=== PATIENT | male | born 1960 | race Caucasian/White ===

== ENCOUNTER 2016-12-31 18:58 | Emergency (ER) | payer MEDICARE, OTHER ==
[~2016-12-31] VITALS: Ht 175.3 cm; Wt 86.4 kg
[~2016-12-31 18:58] MED LIST: ALPR2TAB PO
[2016-12-31 19:02] VITALS: Ht 175.3 cm; Wt 86.4 kg
--- NOTE | 2016-12-31 19:42 | ERD ---
ER Documentation Chief Complaint Date/Time DATE: 12/31/16 TIME: 19:41 Chief Complaint BIBA c/o left hip pain,bruising and bleeding forehead r/t fall,skin rash HPI 56-year-old male well known to this ED with a long history of alcohol abuse brought to the ED via rescue ambulance after a fall which he hit his head. Mild frontal headache. Denies loss of consciousness or neck pain. Mild left hip pain but ambulated without difficulty. Patient states just wants to go home. Admits to acute and chronic alcohol abuse. No chest pain or palpitations. No shortness of breath or cough. No depression or anxiety. Denies auditory or visual hallucinations. ROS All systems reviewed and are negative except as per history of present illness. Medications Home Meds Reported Medications Alprazolam* (Xanax*) 2 Mg Tablet, 2 MG PO TID, TAB 04/25/16 Allergies Allergies: Coded Allergies: sulfamethoxazole (Verified Allergy, Unknown, 07/18/16) trimethoprim (Verified Allergy, Unknown, 07/18/16) PMhx/Soc Reviewed in chart. As per HPI. Tetanus Vacc unknown. History of Surgery: Yes (skin CA removed, left leg repair with metal evelyn) Anesthesia Reaction: No Hx Neurological Disorder: No (pt denies seizures and stroke as previously noted ) Hx Respiratory Disorders: No Hx Cardiac Disorders: No Hx Psychiatric Problems: No (pt denies schizophrenia and anxiety, although previously noted) Hx Miscellaneous Medical Probl: Yes (skin CA,avascular necrosis (L) hip) Hx Alcohol Use: No Hx Substance Use: No Hx Tobacco Use: Yes (2 cig/ day) Smoking Status: Current every day smoker FmHx Not relevant to presenting complaint Physical Exam Vitals Vital Signs Date Time Temp Pulse Resp B/P Pulse Ox O2 Delivery O2 Flow Rate FiO2 12/31/16 21:25 98.0 98 18 165/94 100 Room Air 12/31/16 19:02 97.6 96 18 215/128 98 Physical Exam Const: Alert, no acute distress. AOB. Poor hygiene. Head: Frontal scalp abrasion. No active bleeding. No tenderness. Eyes: Normal Conjunctiva. No periorbital ecchymoses. EOMI. Pupils equal reactive to light. Horizontal nystagmus. No periorbital ecchymosis. ENT: Normal External Ears, Nose and Mouth. Negative matson sign. Neck: Full range of motion nontender. Resp: Clear to auscultation bilaterally. No rib tenderness or crepitus. Cardio: Regular rate and rhythm, no murmurs Abd: Soft, non tender, non distended. Normal bowel sounds Skin: No petechiae or rashes Back: No midline or flank tenderness Ext: No cyanosis, or edema Neur: Awake and alert. Ambulatory with a steady gait. No focal deficit observed.No tremors. Psych: Does not appear anxious or depressed. Denies visual or auditory hallucinations. Results 24 hrs Current Medications Medications (Trade) Dose Ordered Sig/Guzman Route PRN Reason Start Time Stop Time Status Last Admin Dose Admin Diphtheria/ Tetanus/Acell Pertussis (Adacel) 0.5 ml ONCE ONCE IM* 12/31/16 20:00 12/31/16 20:01 DC PROCEDURE: CT Brain without contrast. CLINICAL INDICATION: Trauma. Headache. TECHNIQUE: A CT of the brain without contrast was performed utilizing axial sections from the skull base through the vertex. The patient was scanned without intravenous contrast enhancement. Sagittal and coronal reformatted images were obtained using the data from the axial images. Total exam DLP is 720.23 mGy-cm. CTDIvol is 43.48 mGy. One or more of the following dose reduction techniques were used: Automated exposure control, adjustment of the mA and/or kV according to patient size, use of iterative reconstruction technique. COMPARISON: 06/22/2016. FINDINGS: There is normal hansen-white matter differentiation. There is enlargement of the ventricles and subarachnoid spaces consistent with atrophy, out of proportion for the patient's age. There is decreased attenuation of the periventricular white matter consistent with microangiopathic ischemic change. There is no intracranial hemorrhage or space-occupying lesion. There is no midline shift. There is no skull fracture or lytic lesion. IMPRESSION: 1. Atrophy, out of proportion for the patient's age. 2. Microangiopathic ischemic change. 3. No intracranial hemorrhage. 4. Otherwise unremarkable noncontrast CT scan of the brain. RPTAT: QQ .Chao Ochoa MD, MD Date Time Electronically viewed and signed by .Chao Ochoa MD, on 12/31/2016 20:58 .R/ PROCEDURE: CT Cervical Spine without contrast. CLINICAL INDICATION: Trauma. Neck pain. TECHNIQUE: Helical axial sections were obtained through the cervical spine without intravenous contrast enhancement. Sagittal and coronal reformatted images were accomplished using the data from the axial images. Total exam DLP is 527.31 mGy-cm. CTDIvol is 22.27 mGy. One or more of the following dose reduction techniques were used: Automated exposure control, adjustment of the mA and/or kV according to patient size, use of iterative reconstruction technique. COMPARISON: No prior studies are available for comparison. FINDINGS: There is normal stature and alignment of the vertebrae. There is no fracture. The disk height is normal. There is no lytic or blastic lesion. The paravertebral soft tissues are normal. IMPRESSION: 1. Unremarkable CT scan of the cervical spine. 2. No fracture. RPTAT: QQ .Chao Ochoa MD, MD Date Time Electronically viewed and signed by .Chao Ochoa MD, MD on 12/31/2016 21:01 .R/ Procedures/MDM DOCUMENTS REVIEWED: ED nurse, prior ED REEXAMINATION/REEVALUATION: Time:21:15. Doing well. Ambulatory with a steady gait and wants to be discharged home or he will sign out AMA MEDICAL DECISION MAKIN-year-old male well known to this ED with a long history of alcohol abuse brought to the ED via rescue ambulance after a fall and head injury. He sustained a closed head injury and scalp abrasion. No CT evidence of intracranial bleed or infarct. No cervical spine injury. Alcohol cessation counseling provided. Stable for discharge with precautionary instructions and outpatient follow-up is counseled. Counseled patient regarding diagnostic workup, diagnosis and need for followup. Understands to return to ED if symptoms recur, worsen or any other concerns. Departure Diagnosis: Primary Impression: Alcoholic intoxication Complication of substance-induced condition: with unspecified complication Qualified Code: F10.129 - Alcoholic intoxication, with unspecified complication Additional Impressions: Chronic alcohol abuse Closed head injury Encounter type: initial encounter Qualified Code: S09.90XA - Closed head injury, initial encounter Scalp abrasion Encounter type: initial encounter Qualified Code: S00.01XA - Scalp abrasion , initial encounter Condition: Stable LUIS RENEE MD Dec 31, 2016 19:41
[2016-12-31] MEDS ORDERED: DIPHTH/TET/ACEL PERTUSS (ADULT) 0.5 ML VIAL IM* ONE (20:00)
--- NOTE | 2016-12-31 20:58 | RADRPT ---
PROCEDURE: CT Brain without contrast. CLINICAL INDICATION: Trauma. Headache. TECHNIQUE: A CT of the brain without contrast was performed utilizing axial sections from the skul l base through the vertex. The patient was scanned without intravenous contrast enhancement. Sagitta l and coronal reformatted images were obtained using the data from the axial images. Total exam DLP is 720.23 mGy-cm. CTDIvol is 43.48 mGy. One or more of the following dose reduction techniques were used: Automated exposure control, adjustment of the mA and/or kV according to patient size, use of iterative reconstruction technique. COMPARISON: 06/22/2016. FINDINGS: There is normal hansen-white matter differentiation. There is enlargement of the ventricles and subarachnoid spaces consistent with atrophy, out of propo rtion for the patient's age. There is decreased attenuation of the periventricular white matter consistent with microangiopathic ischemic change. There is no intracranial hemorrhage or space-occupying lesion. There is no midline shift. There is no skull fracture or lytic lesion. IMPRESSION: 1. Atrophy, out of proportion for the patient's age. 2. Microangiopathic ischemic change. 3. No intracranial hemorrhage. 4. Otherwise unremarkable noncontrast CT scan of the brain. RPTAT: QQ .Chao Ochoa MD, MD Date Time Electronically viewed and signed by .Chao Ochoa MD, on 12/31/2016 20:58 .R/
--- NOTE | 2016-12-31 21:01 | RADRPT ---
PROCEDURE: CT Cervical Spine without contrast. CLINICAL INDICATION: Trauma. Neck pain. TECHNIQUE: Helical axial sections were obtained through the cervical spine without intravenous con trast enhancement. Sagittal and coronal reformatted images were accomplished using the data from th e axial images. Total exam DLP is 527.31 mGy-cm. CTDIvol is 22.27 mGy. One or more of the followi ng dose reduction techniques were used: Automated exposure control, adjustment of the mA and/or kV a ccording to patient size, use of iterative reconstruction technique. COMPARISON: No prior studies are available for comparison. FINDINGS: There is normal stature and alignment of the vertebrae. There is no fracture. The disk height is normal. There is no lytic or blastic lesion. The paravertebral soft tissues are normal. IMPRESSION: 1. Unremarkable CT scan of the cervical spine. 2. No fracture. RPTAT: QQ .Chao Ochoa MD, MD Date Time Electronically viewed and signed by .Chao Ochoa MD, on 12/31/2016 21:01 .R/
[2016-12-31 21:25] VITALS: BP 165/94; PULSE 98; RESP 18; TEMP 98
== END 2016-12-31 22:07 | disposition home or self-care (01) ==
LOC: E/R 18:58
DX: F10.129 Alcohol abuse with intoxication, unspecified (principal); S00.01XA Abrasion of scalp, initial encounter; F17.210 Nicotine dependence, cigarettes, uncomplicated; R40.2142 Coma scale, eyes open, spontaneous, at arrival to emergency department; R40.2242 Coma scale, best verbal response, confused conversation, at arrival to emergency department; R40.2362 Coma scale, best motor response, obeys commands, at arrival to emergency department; S09.90XA Unspecified injury of head, initial encounter; W01.10XA Fall on same level from slipping, tripping and stumbling with subsequent striking against unspecified object, initial encounter; Y92.9 Unspecified place or not applicable; Z85.828 Personal history of other malignant neoplasm of skin
CPT/HCPCS: 70450; 72125

== ENCOUNTER 2017-01-17 12:37 | Emergency (ER) | payer MEDICARE, OTHER ==
[~2017-01-17] VITALS: Ht 172.7 cm; Wt 80.0 kg
[2017-01-17 12:41] VITALS: Ht 172.7 cm; Wt 80.0 kg
[2017-01-17 13:05] VITALS: BP 110/61; PULSE 99; RESP 20; TEMP 97.8
--- NOTE | 2017-01-17 13:25 | RADRPT ---
PROCEDURE: CT brain without contrast CLINICAL INDICATION: Altered mental state TECHNIQUE: CT of the brain without contrast performed on a multidetector CT scanner, with multiplan ar reformats. One or more of the following dose reduction techniques were used: Automated exposure control, adjustment in mA and / or kV according to patient size, use of iterative reconstructive bobby hnique. CTDIvol = 45 mGy; DLP = 720 mGy-cm. COMPARISON: 12/31/2016 FINDINGS: No acute intracranial hemorrhage is identified. No extra-axial fluid collection is seen. There is no mass effect. No midline shift is identified. Ventricles and sulci are mildly enlarged compatible with generalized volume loss. There are mild areas of hypodensity in the periventricular - deep white matter which are nonspecific but suggestive of chronic small vessel ischemic changes. Wallace-white differentiation is preserved. Osseous structures are unremarkable. Mastoid air cells and imaged paranasal sinuses grossly clear. IMPRESSION: 1. No evidence of acute intracranial pathology. 2. Mild generalized volume loss, with mild chronic small vessel ischemic changes. RPTAT: VV .Aron Mccall MD, Date Time Electronically viewed and signed by .Aron Mccall MD, on 01/17/2017 13:25 .O/
--- NOTE | 2017-01-17 14:18 | ERD ---
ER Documentation Chief Complaint Date/Time DATE: 01/17/17 TIME: 14:16 Chief Complaint ETOH NO TRAUMA SPEAKING IN COMPLETE SENTENCES HPI Patient is a 56-year-old male with alcohol abuse who presents altered. Please note the history and physical exam is limited secondary to the patient's altered mental status. The patient was brought in by ambulance. He admits to drinking alcohol. He was found outside of a [employer] store and the shop owner [employer] company called 911. The patient has no complaints. The patient is well-known to our staff for similar visits. Upon review of old medical records she has multiple visits to the ER. Review of the emergency department information exchange shows visits to 4 separate emergency departments. ROS All systems reviewed and are negative except as per history of present illness. Medications Home Meds Reported Medications Alprazolam* (Xanax*) 2 Mg Tablet, 2 MG PO TID, TAB 04/25/16 Allergies Allergies: Coded Allergies: sulfamethoxazole (Verified Allergy, Unknown, 01/17/17) trimethoprim (Verified Allergy, Unknown, 01/17/17) PMhx/Soc History of Surgery: Yes (skin CA removed, left leg repair with metal evelyn) Anesthesia Reaction: No Hx Neurological Disorder: No (pt denies seizures and stroke as previously noted ) Hx Respiratory Disorders: No Hx Cardiac Disorders: No Hx Psychiatric Problems: No (pt denies schizophrenia and anxiety, although previously noted) Hx Miscellaneous Medical Probl: Yes (skin CA,avascular necrosis (L) hip) Hx Alcohol Use: Yes Hx Substance Use: No Hx Tobacco Use: Yes (2 cig/ day) Smoking Status: Current every day smoker FmHx Unable to obtain Physical Exam Vitals Vital Signs Date Time Temp Pulse Resp B/P Pulse Ox O2 Delivery O2 Flow Rate FiO2 01/17/17 13:05 97.8 99 20 110/61 95 01/17/17 12:41 97.8 99 20 110/61 95 Physical Exam Const: No acute distress Head: Atraumatic Eyes: Normal Conjunctiva ENT: Normal External Ears, Nose and Mouth. Neck: Full range of motion..~ No meningismus. Resp: Clear to auscultation bilaterally Cardio: Regular rate and rhythm, no murmurs Abd: Soft, non tender, non distended. Normal bowel sounds Skin: No petechiae or rashes Back: No midline or flank tenderness Ext: No cyanosis, or edema Neur: Awake but intoxicated Results 24 hrs Laboratory Tests Test 01/17/17 12:57 Bedside Glucose 149mg/dL Procedures/[facility] CT head is negative for cranial hemorrhage or skull fracture per radiology. Accu-Chek is normal. Patient is a 56-year-old male who presents altered. Accu-Chek was normal. CT scan of the brain shows no skull fracture or intra-cranial hemorrhage. The patient will be discharged home and can follow-up with a primary doctor at the local clinics within 24-48 hours. He was instructed not drink alcohol to excess. The patient will be discharged once clinically sober and able to ambulate on his own. Departure Diagnosis: Primary Impression: Alcoholic intoxication Complication of substance-induced condition: with delirium Qualified Code: F10.121 - Alcoholic intoxication, with delirium Condition: Fair Patient Instructions: Alcohol Intoxication Referrals: COUNT INCLUDES THE [facility] YOU HAVE RECEIVED A MEDICAL SCREENING EXAM AND THE RESULTS INDICATE THAT YOU DO NOT HAVE A CONDITION THAT REQUIRES URGENT TREATMENT IN THE EMERGENCY DEPARTMENT. FURTHER EVALUATION AND TREATMENT OF YOUR CONDITION CAN WAIT UNTIL YOU ARE SEEN IN YOUR DOCTORS OFFICE WITHIN THE NEXT 1-2 DAYS. IT IS YOUR RESPONSIBILITY TO MAKE AN APPOINTMENT FOR FOLOW-UP CARE. IF YOU HAVE A PRIMARY DOCTOR --you should call your primary doctor and schedule an appointment IF YOU DO NOT HAVE A PRIMARY DOCTOR YOU CAN CALL OUR PHYSICIAN REFERRAL HOTLINE AT IF YOU CAN NOT AFFORD TO SEE A PHYSICIAN YOU CAN CHOSE FROM THE FOLLOWING COUNT INCLUDES THE [facility] [address] [facility]. [facility] [address] [facility] [place] [address] [facility] [address] [facility]. [facility] [address] [facility]. [facility]. [address] Additional Instructions: Call your primary care doctor TOMORROW for an appointment during the next 1-2 days.See the doctor sooner or return here if your condition worsens before your appointment time. REYNA RENDON MD Jan 17, 2017 14:18
== END 2017-01-17 15:29 | disposition home or self-care (01) ==
LOC: E/R 12:37
DX: F10.121 Alcohol abuse with intoxication delirium (principal); F17.210 Nicotine dependence, cigarettes, uncomplicated; R40.2142 Coma scale, eyes open, spontaneous, at arrival to emergency department; R40.2242 Coma scale, best verbal response, confused conversation, at arrival to emergency department; R40.2362 Coma scale, best motor response, obeys commands, at arrival to emergency department; Z85.828 Personal history of other malignant neoplasm of skin
CPT/HCPCS: 70450; 82962

== ENCOUNTER 2017-02-20 22:58 | Emergency (ER) | payer MEDICARE, OTHER ==
[~2017-02-20] VITALS: Ht 175.3 cm; Wt 81.8 kg
[2017-02-20 23:00] VITALS: Ht 175.3 cm; Wt 81.8 kg
--- NOTE | 2017-02-20 23:17 | ERA ---
ER Documentation Chief Complaint Date/Time DATE: 02/20/17 TIME: 23:17 Chief Complaint head pain after fall,verbalized someone's out to get him HPI The patient is a 56-year-old male, presenting to the ER because of a head pain after he fell. He also stated that somebody is after him. He is obvious intoxicated at the history is well limited. He has presented to the ER previously for alcohol intoxication. Past medical history/past surgical history/social history/review of system: Unable to perform due to his condition ROS All systems reviewed and are negative except as per history of present illness. Medications Home Meds Discontinued Reported Medications Alprazolam* (Xanax*) 2 Mg Tablet, 2 MG PO TID, TAB 04/25/16 Allergies Allergies: Coded Allergies: sulfamethoxazole (Unverified Allergy, Unknown, 02/20/17) trimethoprim (Unverified Allergy, Unknown, 02/20/17) PMhx/Soc History of Surgery: Yes (skin CA removed, left leg repair with metal evelyn) Anesthesia Reaction: No Hx Neurological Disorder: No (pt denies seizures and stroke as previously noted ) Hx Respiratory Disorders: No Hx Cardiac Disorders: No Hx Psychiatric Problems: No (pt denies schizophrenia and anxiety, although previously noted) Hx Miscellaneous Medical Probl: Yes (skin CA,avascular necrosis (L) hip) Hx Alcohol Use: Yes Hx Substance Use: No Hx Tobacco Use: Yes (2 cig/ day) Smoking Status: Current every day smoker Physical Exam Vitals Vital Signs Date Time Temp Pulse Resp B/P Pulse Ox O2 Delivery O2 Flow Rate FiO2 02/20/17 23:00 98.7 86 18 142/91 92 Physical Exam Const: No acute distress. Intoxicated Head: Atraumatic. Eyes: Normal Conjunctiva. ENT: Normal External Ears, Nose and Mouth. Occipital scalp abrasion, no hematoma or laceration Neck: Full range of motion. No meningismus. Resp: Clear to auscultation bilaterally. Cardio: Regular rate and rhythm, no murmurs. Abd: Soft, non distended, normal bowel sounds, non tender. Skin: No petechiae or rashes. Back: No midline or flank tenderness. Ext: No cyanosis, or edema. Neur: Limited due to his condition, he is moving all extremities Psych: Unable to perform due to his condition Result Diagram: 02/20/179 02/20/179 Results 24 hrs Laboratory Tests Test 02/20/17 23:40 02/20/17 23:49 Urine Color LT. YELLOW Urine Clarity CLEAR Urine pH 7.0 Urine Specific Sheridan 1.010 Urine Ketones NEGATIVE Urine Nitrite NEGATIVE Urine Bilirubin NEGATIVE Urine Urobilinogen >8.0 E.U./dL Urine Leukocyte Esterase NEGATIVE Urine Microscopic RBC 0-2/HPF Urine Microscopic WBC NONE SEEN/HPF Urine Squamous Epithelial Cells RARE Urine Hemoglobin 1+ Urine Glucose NEGATIVE% Urine Total Protein 2+ Urine Opiates Screen Negative Urine Barbiturates Negative Urine Amphetamines Screen Negative Urine Benzodiazepines Screen Negative Urine Cocaine Screen Negative Urine Cannabinoids Negative White Blood Count 3.110^3/ul Red Blood Count 2.8810^6/ul Hemoglobin 8.3g/dl Hematocrit 26.2% Mean Corpuscular Volume 91.0fl Mean Corpuscular Hemoglobin 28.8pg Mean Corpuscular Hemoglobin Concent 31.7g/dl Red Cell Distribution Width 19.7% Platelet Count 05532^3/UL Mean Platelet Volume 9.8fl Neutrophils % 45.0% Lymphocytes % 40.9% Monocytes % 10.2% Eosinophils % 1.0% Basophils % 1.3% Nucleated Red Blood Cells % 0.0/100WBC Neutrophils # 1.410^3/ul Lymphocytes # 1.310^3/ul Monocytes # 0.310^3/ul Eosinophils # 0.010^3/ul Basophils # 0.010^3/ul Nucleated Red Blood Cells # 0.010^3/ul Sodium Level 145mmol/L Potassium Level 3.9mmol/L Chloride Level 100mmol/L Carbon Dioxide Level 33mmol/L Anion Gap 16 Blood Urea Nitrogen 9mg/dl Creatinine 0.67mg/dl Glucose Level 107mg/dl Calcium Level 8.7mg/dl Total Bilirubin 0.3mg/dl Direct Bilirubin 0.00mg/dl Indirect Bilirubin 0.3mg/dl Aspartate Amino Transf (AST/SGOT) 280IU/L Alanine Aminotransferase (ALT/SGPT) 103IU/L Alkaline Phosphatase 233IU/L Total Protein 7.0g/dl Albumin 3.6g/dl Globulin 3.40g/dl Albumin/Globulin Ratio 1.05 Salicylates Level < 1.0mg/dl Acetaminophen Level < 10.0ug/ml Ethyl Alcohol Level 518.0mg/dl Procedures/[place] [address] Radiology Main Line: [phone] DIAGNOSTIC IMAGING REPORT Patient: YIN ELLIS : 1960 Age: 56 Sex: M MR #: [id number] DOS: 02/20/17 2330 Ordering MD: HARMAN COREY MD Location: E/R Room/Bed: PROCEDURE: CT BRAIN WITHOUT CONTRAST CLINICAL INDICATION: 56-year-old male with altered level of consciousness. TECHNIQUE: The study was performed utilizing [employer] VCT 64-slice CT scanner. Direct axial sections were obtained from the foramen magnum to the vertex without the use of intravenous contrast material. Sagittal and coronal reformations were obtained. One or more of the following dose reduction techniques were utilized: automated exposure control, adjustment of the mA and/ or kV according to patient's size or use of iterative reconstruction technique. The images were viewed on a PACS workstation. CTD/vol = 45.0 mGy; Total Exam DLP = 810.3 mGy-cm. COMPARISON: CT brain January 17, 2017. FINDINGS: There is mild motion artifact limiting the evaluation. There is moderate prominence of the sulci and cisternal spaces consistent with diffuse volume loss. Otherwise, the ventricles have a normal shape and position. There is no evidence for mass effect or midline shift. There are mild periventricular areas of decreased density presumably representing microangiopathic ischemic changes are without significant interval change. There is no evidence for acute intra or extra-axial blood. The bony calvarium is intact. There is left parietal scalp soft tissue swelling. There is mild mucosal thickening within the ethmoid air cells and partially visualized inferior maxillary sinuses. No air-fluid levels are noted. The mastoid air cells are without significant soft tissue. IMPRESSION: 1. Motion artifact. 2. Moderate diffuse volume loss. 3. Mild microangiopathic ischemic changes. 4. Left parietal scalp soft tissue swelling. 5. Mild mucosal thickening paranasal sinuses. .Navdeep Haywood MD, MD Date Time Electronically viewed and signed by .Navdeep Haywood MD, on 02/21/2017 01:11 .M/ CC: HARMAN COREY MD MEDICAL MAKING DECISION: The patient is a 46-year-old male, presenting with acute psychosis, acute scalp contusion, acute alcohol intoxication. The differential diagnoses considered include but are not limited to drug-induced psychosis, psychosis, decompensated psychiatric illness, substance abuse Departure Diagnosis: Primary Impression: Psychosis Additional Impressions: Alcohol intoxication Scalp contusion Pancytopenia Abnormal LFTs Condition: Stable Comments He will be reevaluated for any psychiatric or social need when he liana. The patient is signed out to the oncoming physician Dr. Starks at 6 AM The patient's blood pressure was elevated (>120/80) but appears stable without evidence of hypertension emergency or urgency. The patient was counseled about the risks of hypertension and urged to pursue outpatient monitoring and therapy within a week with their primary care physician. HARMAN COREY MD February 20, 2017 23:17
[2017-02-20 23:54] LABS: ADD SCAN DIFF NO
[2017-02-20 23:56] LABS: BASOPHILS % 1.3 % (0.0-2.0); HEMATOCRIT 26.2 % (42.0-52.0); HEMOGLOBIN 8.3 g/dl (14.0-18.0); LYMPHOCYTES # 1.3 10^3/ul (0.8-2.9); LYMPHOCYTES % 40.9 % (15.0-51.0); MEAN CORPUSCULAR HEMOGLOBIN 28.8 pg (29.0-33.0); MEAN CORPUSCULAR HGB CONC 31.7 g/dl (32.0-37.0); MEAN PLATELET VOLUME 9.8 fl (7.4-10.4); MONOCYTE # 0.3 10^3/ul (0.3-0.9); MONOCYTES % 10.2 % (0.0-11.0); NEUTROPHIL # 1.4 10^3/ul (1.6-7.5); PLATELET COUNT 108 10^3/UL (140-415); RED BLOOD COUNT 2.88 10^6/ul (4.70-6.10); RED CELL DISTRIBUTION WIDTH 19.7 % (11.5-14.5); WHITE BLOOD COUNT 3.1 10^3/ul (4.8-10.8)
[2017-02-21 00:08] LABS: ADD UMIC YES; URINE BILIRUBIN (Dip) NEGATIVE (NEGATIVE); URINE BLOOD (Dip) 1+ (NEGATIVE); URINE COLOR LT. YELLOW (YELLOW); URINE GLUCOSE (Dip) NEGATIVE (NEGATIVE); URINE KETONES (Dip) NEGATIVE (NEGATIVE); URINE LEUKOCYTE ESTERASE (Dip) NEGATIVE (NEGATIVE); URINE NITRITE (Dip) NEGATIVE (NEGATIVE); URINE TOTAL PROTEIN (Dip) 2+ (NEGATIVE); URINE UROBILINOGEN (Dip) >8.0 E.U./dL (0.1-1.0)
[2017-02-21 00:22] LABS: SQUAMOUS EPITHELIAL CELL,UR RARE; URINE RBCS 0-2 /HPF (0)
[2017-02-21 00:26] LABS: BARBITURATES Negative (NEGATIVE); BENZODIAZEPINES Negative (NEGATIVE); CANNABINOIDS Negative (NEGATIVE); COCAINE Negative (NEGATIVE)
[2017-02-21 00:32] LABS: OPIATES Negative (NEGATIVE)
[2017-02-21 00:52] LABS: ALANINE AMINOTRANSFERASE 103 IU/L (13-69); ALBUMIN 3.6 g/dl (3.3-4.9); ALBUMIN/GLOBULIN RATIO 1.05; ALKALINE PHOSPHATASE 233 IU/L (42-121); ANION GAP 16 (8-16); ASPARTATE AMINO TRANSFERASE 280 IU/L (15-46); BILIRUBIN,INDIRECT 0.3 mg/dl (0-1.1); BILIRUBIN,TOTAL 0.3 mg/dl (0.2-1.3); BLOOD UREA NITROGEN 9 mg/dl (7-20); CALCIUM 8.7 mg/dl (8.4-10.2); CARBON DIOXIDE 33 mmol/L (21-31); CHLORIDE 100 mmol/L (97-110); CREATININE 0.67 mg/dl (0.61-1.24); GLUCOSE 107 mg/dl (70-220); POTASSIUM 3.9 mmol/L (3.5-5.1); SODIUM 145 mmol/L (135-144)
--- NOTE | 2017-02-21 01:11 | RADRPT ---
PROCEDURE: CT BRAIN WITHOUT CONTRAST CLINICAL INDICATION: 56-year-old male with altered level of consciousness. TECHNIQUE: The study was performed utilizing [employer] VCT 64-slice CT scanner. Direct axial sections were obtained from the foramen magnum to the vertex without the use of intravenous contrast material. Sagittal and coronal reformations were obtained. One or more of the following dose reduc tion techniques were utilized: automated exposure control, adjustment of the mA and/or kV according to patient's size or use of iterative reconstruction technique. The images were viewed on a PACS w orkstation. CTD/vol = 45.0 mGy; Total Exam DLP = 810.3 mGy-cm. COMPARISON: CT brain January 17, 2017. FINDINGS: There is mild motion artifact limiting the evaluation. There is moderate prominence of the sulci an d cisternal spaces consistent with diffuse volume loss. Otherwise, the ventricles have a normal sha pe and position. There is no evidence for mass effect or midline shift. There are mild periventricu lar areas of decreased density presumably representing microangiopathic ischemic changes are without significant interval change. There is no evidence for acute intra or extra-axial blood. The bony c alvarium is intact. There is left parietal scalp soft tissue swelling. There is mild mucosal thicke tanya within the ethmoid air cells and partially visualized inferior maxillary sinuses. No air-fluid levels are noted. The mastoid air cells are without significant soft tissue. IMPRESSION: 1. Motion artifact. 2. Moderate diffuse volume loss. 3. Mild microangiopathic ischemic changes. 4. Left parietal scalp soft tissue swelling. 5. Mild mucosal thickening paranasal sinuses. .Navdeep Haywood MD, Date Time Electronically viewed and signed by .Navdeep Haywood MD, on 02/21/2017 01:11 .M/
[2017-02-21 01:23] LABS: ACETAMINOPHEN < 10.0 ug/ml (10.0-30.0); SALICYLATE < 1.0 mg/dl (5.0-30.0)
[2017-02-21] MEDS ORDERED: ONDANSETRON (ODT) 4 MG TAB ODT STA (08:39)
[2017-02-21 12:30] VITALS: BP 152/88; PULSE 94; RESP 16; TEMP 98.3
== END 2017-02-21 12:30 | disposition home or self-care (01) ==
LOC: E/R 22:58
DX: F29 Unspecified psychosis not due to a substance or known physiological condition (principal); R40.2242 Coma scale, best verbal response, confused conversation, at arrival to emergency department; F10.120 Alcohol abuse with intoxication, uncomplicated; S00.03XA Contusion of scalp, initial encounter; D61.818 Other pancytopenia; R94.5 Abnormal results of liver function studies; F17.210 Nicotine dependence, cigarettes, uncomplicated; R40.2142 Coma scale, eyes open, spontaneous, at arrival to emergency department; R40.2362 Coma scale, best motor response, obeys commands, at arrival to emergency department; W18.39XA Other fall on same level, initial encounter; Y92.9 Unspecified place or not applicable; Z85.828 Personal history of other malignant neoplasm of skin
CPT/HCPCS: 36415; 70450; 80053; 80306; 80307; 81001; 85025

== ENCOUNTER 2017-04-11 22:56 | Emergency (ER) | payer MEDICARE, OTHER ==
[~2017-04-11] VITALS: Ht 177.8 cm; Wt 81.0 kg
[2017-04-11 23:14] VITALS: Ht 177.8 cm; Wt 81.0 kg
[2017-04-11] MEDS ORDERED: LORAZEPAM 2 MG INJ IM ONE (23:30)
[2017-04-11] MEDS ORDERED: HALOPERIDOL 5 MG INJ IM ONE (23:30)
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
[2017-04-12 09:27] VITALS: BP 113/65; PULSE 68; RESP 18; TEMP 97.5
== END 2017-04-12 09:28 | disposition home or self-care (01) ==
LOC: E/R 22:56
DX: F10.129 Alcohol abuse with intoxication, unspecified (principal); R40.2142 Coma scale, eyes open, spontaneous, at arrival to emergency department; R40.2242 Coma scale, best verbal response, confused conversation, at arrival to emergency department; R40.2352 Coma scale, best motor response, localizes pain, at arrival to emergency department; Z85.828 Personal history of other malignant neoplasm of skin; Z87.891 Personal history of nicotine dependence
CPT/HCPCS: 96372; 99284; J1630; J2060